=== PATIENT | male | born 1975 | race Caucasian/White ===

== ENCOUNTER 2021-05-16 18:09 | Inpatient (IN) | payer BC ==
[~2021-05-16] VITALS: Ht 170.2 cm; Wt 96.2 kg
[2021-05-16] VITALS (12 sets, daily range): BP systolic 82–122; BP diastolic 40–57
[2021-05-16 21:41] LABS: BE(vivo) 6.1 mmol/L (-2 to +3); HCO3 30.5 mmol/L (22.0-26.0); PCO2 43.6 mmHg (35.0-45.0); PO2 56.2 mmHg (80.0-100.0); pH 7.463 (7.360-7.450); sO2 90.7 % (92.0-98.0)
[2021-05-16 23:11] LABS: HEMOGLOBIN 7.9 gm/dL (14.0-18.0); RDW 20.9 % (10.5-14.5)
[2021-05-16 23:14] LABS: HEMATOCRIT 25.3 % (42.0-52.0); MCH 29.6 pg (26.0-34.0); MCV 95.3 fL (80.0-100.0); RBC 2.66 mil/uL (4.50-6.00)
[2021-05-16 23:25] LABS: CALCIUM 7.4 mg/dL (8.5-10.1); CREATININE 1.1 mg/dL (0.7-1.3); POTASSIUM 5.1 mmol/L (3.5-5.1)
[2021-05-16 23:29] LABS: ALBUMIN 2.7 g/dL (3.4-5.0); DIRECT BILIRUBIN 0.7 mg/dL (<0.1-0.2); TOTAL BILIRUBIN 2.3 mg/dL (0.2-1.0); TOTAL PROTEIN 5.9 g/dL (6.4-8.2)
[2021-05-16 23:34] LABS: INR 1.14; PROTIME 12.4 Seconds (10.5-12.1)
[2021-05-17] VITALS (25 sets, daily range): BP systolic 82–121; BP diastolic 38–59
[2021-05-17 00:47] LABS: WBC 64.9 thou/uL (4.0-11.0)
[2021-05-17 04:03] LABS: BE(vivo) 6.1 mmol/L (-2 to +3); HCO3 33.5 mmol/L (22.0-26.0); PCO2 68.4 mmHg (35.0-45.0); PO2 83.7 mmHg (80.0-100.0); sO2 94.9 % (92.0-98.0)
[2021-05-17 04:04] LABS: pH 7.308 (7.360-7.450)
[2021-05-17 04:47] LABS: HEMATOCRIT 25.1 % (42.0-52.0); HEMOGLOBIN 7.7 gm/dL (14.0-18.0); RBC 2.61 mil/uL (4.50-6.00)
[2021-05-17 04:50] LABS: MCH 29.5 pg (26.0-34.0); MCHC 30.7 g/dL (28.0-37.0); MCV 96.3 fL (80.0-100.0); RDW 21.2 % (10.5-14.5)
[2021-05-17 04:53] LABS: WBC 63.5 thou/uL (4.0-11.0)
[2021-05-17 05:08] LABS: ALBUMIN 2.6 g/dL (3.4-5.0); CALCIUM 7.2 mg/dL (8.5-10.1); CREATININE 1.1 mg/dL (0.7-1.3); TOTAL BILIRUBIN 1.9 mg/dL (0.2-1.0); TOTAL PROTEIN 6.1 g/dL (6.4-8.2)
--- NOTE | 2021-05-17 07:53 | NUR ---
1909- patient here from [place]. Intubated with right IJ TLC in place. Left radial arterial line in place. levophed running at 3 mcgs. Fentanyl at 100 mcgs and propofol at 65 mcgs. Patient placed on full ICU monitoring. Pt placed on vent with appropriate settings. Dr. lea called. Orders received. Added Versed for sedation. 199- Patient still not oxygenating well. Belly breathing, asyncronous from vent. Nimbex added. After this, pts O2 sat increased to upper 90's. Heart rate and rhythm have been stable. Good U/o. AM labs resulted and reviewed. See documentation on interventions for assessment details.
[2021-05-17 09:41] LABS: LIPASE 113 U/L (73-393)
[2021-05-17 11:27] LABS: BE(vivo) 4.1 mmol/L (-2 to +3); HCO3 28.9 mmol/L (22.0-26.0); PCO2 44.4 mmHg (35.0-45.0); PO2 69.6 mmHg (80.0-100.0); pH 7.431 (7.360-7.450); sO2 94.3 % (92.0-98.0)
--- NOTE | 2021-05-17 14:13 | NUR ---
NOTED SUBQ AIR TO NECK AREA. DR. JACOBO AWARE. FOLLOW UP CHEST XRAY. WILL NOTIFY IF SATS DROP FOR POTENTIAL CHEST TUBE PLACEMENT IF WORSENING.
--- NOTE | 2021-05-17 20:19 | NUR ---
PATIENT REMAINS CRITICAL ON THE VENT. DEEP SEDATION WITH PROPOFOL, VERSED, FENTANYL, AND NIMBEX GTTS TO TOLERATE VENT AND MAINTAIN SATS. NOTED SUB Q AIR TO NECK, DR. JACOBO NOTIFIED. FOLLOW UP CHEST XRAY DONE, SEEN BY DR. JACOBO. STATED TO CALL IF PATIENT CAN NOT MAINTAIN SATS. NOTED BLOOD FROM OG TUBE, DR. JACOBO AWARE, CONTINUE TO MONITOR. FEBRILE THIS AFTERNOON, GIVEN PRN TYLENOL. FLAGGED POSTIVE ON SEPSIS SCREEN, SPOKE WITH DR. JACOBO. ORDERS TO MONITOR CVP. CVP LINE SET UP. LEFT RADIAL NILSA REMAINS INTACT. TITRATING LEVOPHED TO MAINTAIN BLOOD PRESSURES. INITIATED TUBE FEEDING PER ORDERS. ACCUCHECKS Q6HR. LEAKING AROUND VEAL, EPISODE OF INCONTININCE. REMOVED AND REPLACED WITH NEW VELA. GOOD URINE OUTPUT AFTER REPLACEMENT. UPDATED FAMILY ON PATIENT STATUS. SET UP FACETIME WITH FAMILY TO SEE PATIENT.
[2021-05-18] VITALS (52 sets, daily range): BP systolic 97–117; BP diastolic 41–68
[2021-05-18 02:05] LABS: GLYCOHEMOGLOBIN (HGB A1C) 10.7 % (4.8-5.6)
[2021-05-18 04:05] LABS: BE(vivo) 3.6 mmol/L (-2 to +3); HCO3 30.4 mmol/L (22.0-26.0); PCO2 59.6 mmHg (35.0-45.0); PO2 86.5 mmHg (80.0-100.0); sO2 95.7 % (92.0-98.0)
[2021-05-18 04:06] LABS: pH 7.325 (7.360-7.450)
[2021-05-18 05:05] LABS: ABSOLUTE NEUTROPHILS 4.5 thou/uL (1.4-8.2); BASOPHILS 0.4 % (0.0-2.0); HEMATOCRIT 23.9 % (42.0-52.0); HEMOGLOBIN 7.2 gm/dL (14.0-18.0); LYMPHOCYTES 82.3 % (24.0-44.0); MCH 29.6 pg (26.0-34.0); MCHC 30.2 g/dL (28.0-37.0); MCV 98.1 fL (80.0-100.0); MONOCYTES 0.9 % (1.0-8.0); PLATELET COUNT 63 thou/uL (150-400); POLYS 16.4 % (36.0-66.0); RBC 2.43 mil/uL (4.50-6.00); RDW 21.4 % (10.5-14.5)
--- NOTE | 2021-05-18 05:07 | HC ---
[facility] [place] [address] CONSULTATION Name: TAB BALDERAS Room #: 237-[facility] M.R.#: [id number] Admission: 05/16/21 Attend Phys: Selam Valencia Discharge: Date of : 75 Report #: [id number] THIS REPORT FOR: cc: TODD - No family physician/PCP TODD - No family physician/PCP Ryan Huerta MD ~ DATE OF SERVICE: 05/17/2021 INFECTIOUS DISEASE CONSULTATION ATTENDING PHYSICIAN: Dr. Valencia. REASON FOR EVALUATION: Severe COVID-19 infection, complicated by pneumonitis with respiratory failure and ARDS, also marked leukocytosis is noted as well. HISTORY OF PRESENT ILLNESS: Chart reviewed and the patient was examined. This is a 46-year-old admitted in direct transfer from [facility], had been hospitalized there on 05/05/2021. At that time, had a roughly 2-day history of progressive dyspnea. 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 Through the course of that hospitalization, continued to worsen, had been confirmed to have COVID-19 infection and was placed on a combination therapy directed against the virus including remdesivir, corticosteroids, also empiric antimicrobials with azithromycin, cefepime and vancomycin. Despite that he did require intubation on day of transfer, 05/16/2021. He is now currently in the ICU here. He is maintained on ventilatory support, FiO2 of 100%. He is sedated. At this point is not requiring additional pressor support. Of note, on transfer, white count was elevated at 63.5 thousand, hemoglobin 7.7, platelet count of 106. Chest x-ray confirms bilateral infiltrates. Initial ABG: pH 7.463, pCO2 of 43.6, pO2 of 56.2, on 100%, PEEP of 14. Blood sugars markedly elevated at 365 as well. Lactic acid was 2.8, repeat was 2.1. He has been given vancomycin and piperacillin in addition to corticosteroids. ALLERGIES: LISTED TO CONTRAST DYE. CURRENT MEDICATIONS: Include vancomycin, dexamethasone, Zosyn, acetylcysteine, insulin drip, famotidine, enoxaparin, propofol, acetaminophen, ondansetron as needed. PAST MEDICAL HISTORY: History of hypertension, hyperlipidemia. SOCIAL HISTORY: Per chart, nonsmoker, no ethanol, no illicit drug use. FAMILY HISTORY: Noncontributory. REVIEW OF SYSTEMS: Unobtainable. [address] [address] CONSULTATION Name: TAB BALDERAS Room #: 237-P [facility] IN [facility]#: [id number] Admission: 05/16/21 Attend Phys: Selam Valencia Discharge: Date of : 75 Report #: [id number] PHYSICAL EXAMINATION: GENERAL: He appears reasonably well nourished. He is sedated, mild to moderate distress. VITAL SIGNS: Afebrile. Pulse in the 90s, blood pressures in the 130 systolic. HEENT: ET, OG tube in place. NECK: Appears to be supple. LUNGS: Scattered coarse breath sounds. HEART: Borderline tachycardic, regular. I do not appreciate a murmur. ABDOMEN: Slightly distended and firm. No peritoneal signs. GENITOURINARY AND RECTAL: Deferred. LABORATORY DATA: Electrolytes: Sodium 141, potassium 5, chloride 103, bicarbonate 33, anion gap of 5, BUN and creatinine 37 and 1.1, glucose of 336. AST of 55, ALT of 40. Albumin 2.6, total protein 6.1, estimated GFR of 72. Lactic acid of 2.1. CBC: White count of 63.5, H and H 7.7 and 25.1, platelets of 106. There is not a differential done. ASSESSMENT AND PLAN: 1. COVID-19 infection complicated by severe pneumonitis with respiratory failure and acute respiratory distress syndrome. 2. Marked leukocytosis. We will evaluate for possible underlying occult process, primary hematological issue versus acute leukemoid reaction. Check differential. 3. Hyperglycemia, whether this is a harbinger to diabetes, has otherwise been undiagnosed or hypertension. Continue a combination of empiric broad spectrum antimicrobial therapy. He had received a direct antiviral therapy as well. 4. Continue corticosteroids, remains critically ill. Continue to support maximally with supplemental oxygen. Monitor expectantly, certainly at risk for additional complications. <ELECTRONICALLY SIGNED> By: Ryan Huerta MD 05/18/21 0507 [id number] [id number] Ryan Huerta MD /nt
[2021-05-18 05:08] LABS: WBC 27.7 thou/uL (4.0-11.0)
[2021-05-18 05:35] LABS: ALBUMIN 2.2 g/dL (3.4-5.0); CREATININE 1.1 mg/dL (0.7-1.3); MAGNESIUM 2.8 mg/dL (1.8-2.4); POTASSIUM 5.3 mmol/L (3.5-5.1); TOTAL BILIRUBIN 1.3 mg/dL (0.2-1.0); TOTAL PROTEIN 5.3 g/dL (6.4-8.2)
--- NOTE | 2021-05-18 06:20 | NUR ---
Pt. remains critical, no vent. setting change, sedation with paralytic cont. Pneumothorax crepitus remains unchanged from start of shift. No communication from fmaily overnight.
--- NOTE | 2021-05-18 10:25 | NUR ---
Patient's sister, Soraya Meng, updated on patient condition and plan of care.
[2021-05-18 14:29] LABS: URINE BILIRUBIN NEGATIVE (Negative); URINE BLOOD 3+ (Negative); URINE CLARITY SL CLOUDY; URINE COLOR YELLOW; URINE GLUCOSE-RANDOM* 3+ (Negative); URINE KETONES TRACE (Negative); URINE LEUKOCYTES NEGATIVE (Negative); URINE NITRITE NEGATIVE (Negative); URINE PROTEIN (DIPSTICK) TRACE (Negative); URINE SPECIFIC GRAVITY 1.015 (1.005-1.035); URINE UROBILINOGEN 0.2 E.U./dl (0.2-1.0)
[2021-05-18 14:50] LABS: CASTS None Seen /LPF (None Seen); SQUAMOUS 0-3 Few /LPF (0-3); URINE RBC >20 Many /HPF (NONE SEEN); URINE WBC 1-5 Rare /HPF (NONE SEEN)
[2021-05-18 14:51] LABS: BACTERIA None Seen /HPF (None Seen); CRYSTALS None Seen /LPF (None Seen)
--- NOTE | 2021-05-18 16:20 | NUR ---
Facetime set up with family at this time.
--- NOTE | 2021-05-18 17:12 | NUR ---
ASSUMED CARE OF PATIENT AT 0600. VENTILATOR SETTINGS WERE A/C 22/550/.100 +14. PATIENT STILL HAS SUB Q ON THE RIGHT SIDE GREATER THAN THE LEFT. WE DECREASED THE FIO2 TO 90% AND HAS BEEN TOLERATED BY THE PATIENT. WILL CONTINUE TO MONITOR THE PATIENT FOR CHANGES THAT NEED TO BE MADE.
[2021-05-19] VITALS (37 sets, daily range): BP systolic 101–131; BP diastolic 39–77
[2021-05-19 04:13] LABS: BE(vivo) 2.8 mmol/L (-2 to +3); HCO3 29.6 mmol/L (22.0-26.0); PCO2 61.6 mmHg (35.0-45.0); PO2 76.5 mmHg (80.0-100.0); sO2 93.6 % (92.0-98.0)
[2021-05-19 04:48] LABS: PLATELET COUNT 61 thou/uL (150-400)
[2021-05-19 04:52] LABS: MCH 30.8 pg (26.0-34.0); MCHC 30.8 g/dL (28.0-37.0); MCV 100.1 fL (80.0-100.0); RBC 1.99 mil/uL (4.50-6.00); RDW 21.4 % (10.5-14.5); WBC 17.7 thou/uL (4.0-11.0)
[2021-05-19 04:54] LABS: HEMATOCRIT 19.9 % (42.0-52.0); HEMOGLOBIN 6.1 gm/dL (14.0-18.0)
[2021-05-19 05:14] LABS: ALBUMIN 1.8 g/dL (3.4-5.0); CALCIUM 7.5 mg/dL (8.5-10.1); MAGNESIUM 3.3 mg/dL (1.8-2.4); POTASSIUM 4.9 mmol/L (3.5-5.1); TOTAL BILIRUBIN 0.7 mg/dL (0.2-1.0); TOTAL PROTEIN 5.5 g/dL (6.4-8.2)
--- NOTE | 2021-05-19 06:04 | NUR ---
REMAINS ON MECH. VENT. SETTINGS AC, TV 550, PEEP 14, RATE INCRESED TO 24 POST ABG. SEDATION CONTINUES FOR VENT MANAGEMENT, SEE MAR. HGB 6.1. ORDER FOR TYPE AND CROSS, TRANSFUSE ONE UNIT RBC. BLOOD BANK BAND PLACED, IN PROCESS OF TYPE AND CROSS. NEED TO CONTACT PAM'S SISTER THIS AM, TO GET CONSENT FOR BLOOD. REMIANS ON LEVOPHED FOR BLOOD PRESSURE SUPPORT.
--- NOTE | 2021-05-19 12:20 | NUR ---
Discussed during los and unite rounds with pulmonary Md, new orders try transfer for ecmo. Pulmonary to reached out to [facility] sister his contacts. CM spoke with dilip at transfer center. to call dr alcides cm faxed over referral to [phone], and requested images be cloud over to .
--- NOTE | 2021-05-19 12:23 | NUR ---
CM Director notified by CM that a Physician Order (which is required for CM to pursue) has been put in to search for ECMO on this patient. Also noting that it is the MD that can determine viability of out of State transfer. CM will note daily interactions with Tertiary hospitals that can provide such services and outcomes noting these facilities will on accept on patients 7-10 days on ventilator support. Noting each of these hospitals are fielding numerous requests for ECMO beds within the region. Once passed the 7-10-day deadline; CM can no longer pursue as these are the Tertiary Hospital guidelines which CM cannot override.
[2021-05-19 13:55] LABS: ABSOLUTE NEUTROPHILS 3.7 thou/uL (1.4-8.2); NUCLEATED RBCS 9 /100WBC
[2021-05-19 13:56] LABS: ANISOCYTOSIS 1+
[2021-05-19 18:04] LABS: HEMATOCRIT 20.6 % (42.0-52.0)
[2021-05-19 18:18] LABS: HEMOGLOBIN 6.3 gm/dL (14.0-18.0)
[2021-05-19 19:07] LABS: ABSOLUTE NEUTROPHILS 4.2 thou/uL (1.4-8.2); BASOPHILS 1.6 % (0.0-2.0); HEMATOCRIT 20.7 % (42.0-52.0); LYMPHOCYTES 70.4 % (24.0-44.0); MCH 29.9 pg (26.0-34.0); MCHC 30.4 g/dL (28.0-37.0); MCV 98.3 fL (80.0-100.0); MONOCYTES 0.4 % (1.0-8.0); PLATELET COUNT 27 thou/uL (150-400); POLYS 27.6 % (36.0-66.0); RDW 21.1 % (10.5-14.5); WBC 15.3 thou/uL (4.0-11.0)
[2021-05-19 19:09] LABS: HEMOGLOBIN 6.3 gm/dL (14.0-18.0)
[2021-05-19 19:14] LABS: CALCIUM 7.5 mg/dL (8.5-10.1); CREATININE 0.9 mg/dL (0.7-1.3); POTASSIUM 5.1 mmol/L (3.5-5.1)
--- NOTE | 2021-05-19 21:09 | NUR ---
Spoke with patient's sister, Soraya, over the phone. GAve her an update in patient condition. Let her know I would call her if anything got worse overnight. She said she would call again in the am.
--- NOTE | 2021-05-19 21:12 | NUR ---
1 unit packed cells given without incidence.
--- NOTE | 2021-05-19 22:14 | NUR ---
2200- Page Dr. Scott. Notified him of low platelet count. Gave update in patiet condition. Orders received for DIC profile and consult hemotology. Called [facility]. She is still not ready to do the CT as she has many ER patients. Will call when ready. Called consult to Dr. Chand.
[2021-05-19 22:42] LABS: APTT 28.2 Seconds (24.5-32.8); PROTIME 10.9 Seconds (10.5-12.1)
--- NOTE | 2021-05-19 23:24 | NUR ---
Called [facility] again, asking when they could do the CT abdomen and the tech said she still had 4 stat scans from the ER.
[2021-05-20] VITALS (39 sets, daily range): BP systolic 92–154; BP diastolic 49–93
[2021-05-20 04:49] LABS: BE(vivo) 4.3 mmol/L (-2 to +3); HCO3 31.5 mmol/L (22.0-26.0); PCO2 63.1 mmHg (35.0-45.0); PO2 102.9 mmHg (80.0-100.0); sO2 97.1 % (92.0-98.0)
--- NOTE | 2021-05-20 04:56 | NUR ---
Around 9090-0569 patient blood pressure became elevated in the 190's to 200's. Patient seemed to be 'waking up', moving head around, some movement of extremities, PIP > 40. Propofol already at 50mcgs, versed at 8 mg/hr, and fentanyl at 100 mcgs/hour. Restarted Nimbex to help with blood pressure, vent compliance, and comfort. 0300- went to [facility] with 2nd RN and RT. No incident. Upon return, blood pressure per arterial line in the 200's.Accurate wave form. Pt biting on Ett, moving head back and forth. Nimbex and propofol increased. Called Vania Murphy NP, orders received for metoprolol 5mg IV x1. 0345- Metoprolol given. 0400- SBP now in the 160s PIP still 43-45.
[2021-05-20 05:02] LABS: pH 7.316 (7.360-7.450)
[2021-05-20 05:07] LABS: HEMATOCRIT 25.7 % (42.0-52.0); HEMOGLOBIN 7.9 gm/dL (14.0-18.0); MCH 29.5 pg (26.0-34.0); MCHC 30.8 g/dL (28.0-37.0); MCV 95.9 fL (80.0-100.0); RBC 2.68 mil/uL (4.50-6.00); RDW 19.1 % (10.5-14.5); WBC 19.7 thou/uL (4.0-11.0)
[2021-05-20 05:32] LABS: CALCIUM 7.5 mg/dL (8.5-10.1); CREATININE 0.7 mg/dL (0.7-1.3); POTASSIUM 4.6 mmol/L (3.5-5.1)
--- NOTE | 2021-05-20 06:22 | NUR ---
Patient still asyncronous with vent. Oxygenating well at 96% on FIO2 of 80. HR low 100's. SBP per kecia, 170s. 135 per cuff. Tube feeds restarted after CT abd done. Patient is not progressing towards goals. See documentation on interventions for assessment details.
--- NOTE | 2021-05-20 09:35 | NUR ---
Mendez spoke with dilip at transfer team, they have to check on beds to see if have any beds today, per dilip the physician said they are closed to ecmo transfers for the unseeable future.
[2021-05-21] VITALS (24 sets, daily range): BP systolic 104–161; BP diastolic 56–84
[2021-05-21 04:15] LABS: HEMATOCRIT 32.5 % (42.0-52.0); HEMOGLOBIN 9.5 gm/dL (14.0-18.0); MCH 29.6 pg (26.0-34.0); MCHC 29.2 g/dL (28.0-37.0); RBC 3.2 mil/uL (4.50-6.00); RDW 20.2 % (10.5-14.5)
[2021-05-21 04:18] LABS: MCV 101.4 fL (80.0-100.0)
[2021-05-21 04:20] LABS: CALCIUM 7.6 mg/dL (8.5-10.1); CREATININE 0.7 mg/dL (0.7-1.3); WBC 73.1 thou/uL (4.0-11.0)
[2021-05-21 04:21] LABS: POTASSIUM 5.4 mmol/L (3.5-5.1)
--- NOTE | 2021-05-21 08:40 | HC ---
[facility] [place] [address] CONSULTATION Name: TAB BALDERAS Xavi Room #: 237-P ADM IN M.R.#: [id number] Admission: 05/16/21 Attend Phys: Rashad Spaulding MD Discharge: Date of : 75 Report #: [id number] THIS REPORT FOR: cc: FAM - No family physician/PCP FAM - No family physician/PCP Pedro Cook MD ~ cc: Rashad Spaulding MD DATE OF SERVICE: 05/20/2021 REASON FOR CONSULTATION: Disseminated intravascular coagulation. 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 At that time, his hemoglobin was about 12.7 and his platelet count was 65,000. He was seen by one of my partners there regarding the lymphocytosis. Flow cytometry has returned showing a B-cell monoclonal population with a differential diagnosis including follicular lymphoma, CD10 positive marginal zone lymphoma, Burkitt's lymphoma, and another mature B-cell neoplasm with aberrant CD10 expression. The patient was transferred to the [facility] ICU for a higher level of care. We are consulted, there is a question of DIC. The patient's recent platelet count was down to 27,000 two days ago. Transfuse up to 53, today 46. Hemoglobin had been down to 6.3, today after transfusion 7.9. Note that his white count is currently above 19,000 when he was admitted at [place] is around 12,000 and went as high as around 40,000 or 60,000 has now been declining. Recent INR was about 1 with an APTT of 28.2, fibrinogen of 423 and a D-dimer of 14, which is elevated. His liver functions have been improving. His total bilirubin has been improving. His IgG level at [place] was 995. Past history is as best we know fairly unremarkable, though there is not much history with regard to that. PAST MEDICAL HISTORY: May be noted we think for hypertension, hyperlipidemia, and elevated blood sugar, though he denied diabetes. SOCIAL HISTORY: Never smoker. No alcohol. FAMILY HISTORY: Not obtainable. CURRENT MEDICATIONS: Include MiraLax daily, methylprednisolone 40 mg q.8h., docusate 100 b.i.d., insulin drip, vitamin C 1500 mg q.6, zinc sulfate 220 mg daily, cholecalciferol 2000 units daily, thiamine 200 mg daily IV, famotidine 20 b.i.d., insulin varying doses, meropenem 1 gram q.12h, vancomycin 1250 mg q.12h, ipratropium and albuterol respiratory therapy, acetylcysteine 600 mg respiratory therapy t.i.d., paralyzing agents, [place] [address] CONSULTATION Name: SHERRIEROULATAB J Room #: 237-P ADM IN M.R.#: [id number] Admission: 05/16/21 Attend Phys: Rashad Spaulding MD Discharge: Date of : 75 Report #: [id number] PHYSICAL EXAM: VITAL SIGNS: Height is 5 feet 7, 170.2 cm, weight is 187 pounds and 6.3 ounces or 85 kilograms. Recent blood pressure is 147/81, O2 sat 96%, pulse 101, current temperature 99.3, but note that last evening it was up to 100.8 at 8:00 in the evening. GENERAL: The patient is in ICU bed in respiratory precautions on a ventilator. HEENT: Face appears symmetrical, though there may be some slight mucosal irritation on his lower lip from his breathing tube. He has several central lines. No obvious bleeding at insertion sites. His urine in his bag does not look bloody. It looks yellow. NECK: No enlarged lymph nodes in the supraclavicular, cervical, axillary, or inguinal region. ABDOMEN: Slightly obese. No definite masses palpable. On percussion, he is a little bit gassy. EXTREMITIES: Without clubbing or cyanosis. There is some ____ of the skin in his feet. The rest was covered by his sequential compression devices. LABORATORY DATA: Lab review is notable for the creatinine of 0.7, AST 23, total bilirubin 0.7, down from 2.3. SGPT is 17, albumin 1.8. Lactic acid 2.9, from 2 days ago. LDH from several days ago 1167. As I mentioned, yesterday, INR was 1 with an APTT of 28.2 with a fibrinogen of 423 and a D-dimer elevated at 14, that is our first measure here. White count today 19.7, hemoglobin 7.9. MCV has been in the upper 90s. RDW elevated at 20.9 on admit here, 19.1 currently. Platelets 46 after the transfusion several days ago. Differential showed increased lymphocytes. TSH slightly low at 0.299 several days ago. IMAGING: Notable for CT abdomen and pelvis done last night, showing extensive interstitial opacities in both lung bases, extensive edema. Marked splenomegaly, unchanged or similar to 05/05/2021, measuring approximately 21.5 cm ____ x 10 x 17.3. Spleen is heterogeneous in attenuation, which may represent infarcts. Metastasis cannot be excluded. Liver thought to be normal. No mention of any enlarged or significantly enlarged lymph nodes. ASSESSMENT AND PLAN: 1. Splenomegaly with monoclonal B cell population on flow cytometry strongly suggestive of a lymphoproliferative disorder such as marginal zone lymphoma. Unclear what role this is playing in the patient's current illness as his IgG level is somewhat normal. 2. COVID pneumonia. Continue supportive efforts with antibiotics and anti-infectives and steroids. 3. Anemia. Transfuse to keep hemoglobin above 7. No obvious bleeding or hemolysis. I believe he was Manuel negative also. Total bilirubin is also not consistent with hemolysis. 4. Thrombocytopenia. Keep platelets above 20,000 or 30,000. No obvious [facility] [address] [place] [address] CONSULTATION Name: TAB BALDERAS Room #: 237-P ADM IN M.R.#: [id number] Admission: 05/16/21 Attend Phys: Rashad Spaulding MD Discharge: Date of : 75 Report #: [id number] bleeding. 5. Elevated D-dimer with fibrinogen adequate and normal coags yesterday, does not appear to be acute disseminated intravascular coagulation. We suspicious that some of the elevated D-dimer is probably related to the COVID and his liver. 6. Respiratory failure. Continue ventilatory support per others. 7. History of hypertension. Defer to others. We will follow with you. <ELECTRONICALLY SIGNED> By: Pedro Cook MD 05/21/21 0840 [id number] [id number] Pedro Cook MD /yumi
--- NOTE | 2021-05-21 12:18 | NUR ---
Cm contacted [facility] transfer centers requesting ECMO tx. They are all full and not accepting ICU/ECMO tx at this time.
[2021-05-22] VITALS (50 sets, daily range): BP systolic 112–153; BP diastolic 56–76
[2021-05-22 05:25] LABS: HEMATOCRIT 24.6 % (42.0-52.0); HEMOGLOBIN 7.8 gm/dL (14.0-18.0); MCH 30.9 pg (26.0-34.0)
[2021-05-22 05:29] LABS: MCHC 31.8 g/dL (28.0-37.0); MCV 97.1 fL (80.0-100.0); RBC 2.53 mil/uL (4.50-6.00); RDW 18.9 % (10.5-14.5)
[2021-05-22 05:46] LABS: CREATININE 0.7 mg/dL (0.7-1.3); POTASSIUM 5.1 mmol/L (3.5-5.1)
[2021-05-22 06:19] LABS: WBC 10.7 thou/uL (4.0-11.0)
[2021-05-22 08:56] LABS: WBC 8.7 thou/uL (4.0-11.0)
[2021-05-22 08:58] LABS: HEMATOCRIT 23.6 % (42.0-52.0); HEMOGLOBIN 7.4 gm/dL (14.0-18.0); MCH 30.4 pg (26.0-34.0); MCHC 31.3 g/dL (28.0-37.0); MCV 96.9 fL (80.0-100.0); RBC 2.44 mil/uL (4.50-6.00); RDW 19.1 % (10.5-14.5)
--- NOTE | 2021-05-22 14:57 | NUR ---
Chart review. Discussed during los with hospitalist and unit rounds with pulmonary md. vent, nutritional support. Still trying to check on ecmo bed around the area: [facility], limit is 3 and have no open beds. [facility] no beds, and [facility] will not have any for the [facility] Covid isolation. On IV gtts. Unit of platelets today. Dr Scott going to try and reach sisters again. Will cont. following as needed. No anticipated dc over the weekend.
--- NOTE | 2021-05-22 18:34 | NUR ---
PATIENT NOT PROGRESSING. DR SKAGGS SPOKE WITH FAMILY MEMBER MILADY BALDERAS ABOUT PATIENT CONDITION AND OVERALL PROGNOSIS. OXYGENATION WORSENS. PER DR SKAGGS OK FOR SATS TO BE 87% AND GREATER. 1 UNIT OF PLATLETS INFUSED TODAY. INSULIN GTT CONTINUES. PROPOFOL, FENTANYL, VERSED FOR SEDATION. ORDERS TO D/C ARTERIAL LINE WHEN PLATLET INFUSION COMPLETE. FAMILY MEMEBERS EXPRESSED WANTING TO COME SEE PATIENT. REQUEST APPROVED VIA REGISTRATION MANAGER NITO. NOTIFIED SUPERVISOR GLYCERIN. FAMILY MEMBER MILADY LEWIS (MOTHER) AND VON VIDALES (SISTER) ARE PLANNING TO FLY IN TO SEE PATIENT TOMORROW FROM [place]. EXPECTED ARRIVAL BETWEEN 1400 AND 1600.
[2021-05-23] VITALS (40 sets, daily range): BP systolic 112–206; BP diastolic 63–96
--- NOTE | 2021-05-23 02:12 | NUR ---
This RN spoke with RT Pako and Dr. Scott regarding patients low oxygen saturation. Patient currently on APRV mode, sats improving. Will watch for impending ABG and chest xray. Patient satting in the mid 80's. Will continue to monitor.
--- NOTE | 2021-05-23 03:19 | NUR ---
This RN referred patient to [facility] at 0320 for a GCS of 3. Referral number is [id number].
[2021-05-23 05:20] LABS: WBC 11.9 thou/uL (4.0-11.0)
[2021-05-23 05:21] LABS: BE(vivo) 14.5 mmol/L (-2 to +3); PO2 67.9 mmHg (80.0-100.0); sO2 87.1 % (92.0-98.0)
[2021-05-23 05:24] LABS: PCO2 119.6 mmHg (35.0-45.0); pH 7.203 (7.360-7.450)
[2021-05-23 05:24] LABS: HEMATOCRIT 24.9 % (42.0-52.0); MCH 31.1 pg (26.0-34.0); MCHC 32.2 g/dL (28.0-37.0); MCV 96.7 fL (80.0-100.0); RBC 2.58 mil/uL (4.50-6.00); RDW 19.1 % (10.5-14.5)
[2021-05-23 05:29] LABS: CALCIUM 8.4 mg/dL (8.5-10.1); CREATININE 0.5 mg/dL (0.7-1.3); POTASSIUM 4.9 mmol/L (3.5-5.1)
--- NOTE | 2021-05-23 09:35 | NUR ---
PATIENT'S SISTER, MILADY, CALLED FROM [phone] AND SHE WAS UPDATED AND EDUCATED ON THE PATIENT'S CONDITION AND PLAN OF CARE.
--- NOTE | 2021-05-23 11:00 | NUR ---
Chart review discussed during los with hospitalist and unit rounds. No anticipated dc over the weekend. Vent day # 7, nutritional support. Isolation for covid. Sister and mom on their way for out of state, going to be able to make window visits at doors. [facility] accept any ecmo transfers, at capacity. Will cont. following as needed for dc needs.
[2021-05-23 12:44] LABS: DIRECT BILIRUBIN 0.5 mg/dL (<0.1-0.2)
--- NOTE | 2021-05-23 20:58 | NUR ---
This RN spoke to kris Araya, at 2030. Discussed plan of care and updated on patient. RN set up Facetime with family, facetgovind for 30 minutes.
[2021-05-24] VITALS (22 sets, daily range): BP systolic 129–165; BP diastolic 68–92
[2021-05-24 04:37] LABS: RBC 2.3 mil/uL (4.50-6.00)
[2021-05-24 04:38] LABS: HEMATOCRIT 22.2 % (42.0-52.0); HEMOGLOBIN 7.1 gm/dL (14.0-18.0); MCH 30.8 pg (26.0-34.0); MCHC 31.8 g/dL (28.0-37.0); MCV 96.7 fL (80.0-100.0); RDW 18.5 % (10.5-14.5); WBC 9.9 thou/uL (4.0-11.0)
--- NOTE | 2021-05-24 04:40 | NUR ---
This RN talked to [facility] this morning at 0440 to update on patient status.
[2021-05-24 04:56] LABS: BE(vivo) 16.2 mmol/L (-2 to +3); PCO2 60.2 mmHg (35.0-45.0); PO2 53.2 mmHg (80.0-100.0); pH 7.461 (7.360-7.450); sO2 88.2 % (92.0-98.0)
[2021-05-24 05:02] LABS: CALCIUM 8.5 mg/dL (8.5-10.1); CREATININE 0.7 mg/dL (0.7-1.3); POTASSIUM 5.3 mmol/L (3.5-5.1)
--- NOTE | 2021-05-24 13:21 | NUR ---
1315HRS - PT'S MOTHER AND SISTER ARRIVED. WITH PERMISSION FROM NATUROPATHIC PHYSICIAN OF THE DAY, FAMILY MEMBERS ARE ALLOW TO VIEW FROM OUTSIDE OF PT'S DOOR. MOTHER AND SISTER INFORMED AND UPDATED ON PT'S STATUS.
[2021-05-25] VITALS (20 sets, daily range): BP systolic 127–159; BP diastolic 67–88
[2021-05-25 05:52] LABS: HEMOGLOBIN 6.8 gm/dL (14.0-18.0); RBC 2.22 mil/uL (4.50-6.00)
[2021-05-25 05:55] LABS: HEMATOCRIT 21.2 % (42.0-52.0); MCH 30.7 pg (26.0-34.0); MCHC 32.1 g/dL (28.0-37.0); MCV 95.7 fL (80.0-100.0); RDW 18.7 % (10.5-14.5); WBC 10.3 thou/uL (4.0-11.0)
[2021-05-25 06:07] LABS: CALCIUM 8.1 mg/dL (8.5-10.1); CREATININE 0.6 mg/dL (0.7-1.3); POTASSIUM 4.6 mmol/L (3.5-5.1)
--- NOTE | 2021-05-25 06:50 | NUR ---
ASSUMED CARE AT 1900. SPOKE TO FAMILY AROUND 1999 TO SET UP FACE TIME CALL; FAMILY CALLED ON IPAD AT 2300. 0330-[facility] CALLED, GAVE UPDATE ON PT'S CONDITION. 626-SPOKE TO DR. SKAGGS REGARDING HGB OF 6.8; OBTAINED ORDER TO TYPE/SCREEN AND TRANSFUSE ONE UNIT. PT'S O2 SAT HAS BEEN IN 80'S ALL NIGHT, LOW OF 84% AND HIGH OF 88%. NO PROGRESSION TOWARDS GOALS.
--- NOTE | 2021-05-25 21:45 | NUR ---
ASSUMED CARE AT 1900. RT DECREASED PEEP TO 12, WHICH HAS LOWERED THE PEAK PRESSURE; PT'S SATs REMAIN AROUND 90%. WILL CONTINUE TO MONITOR.
[2021-05-26] VITALS (16 sets, daily range): BP systolic 109–153; BP diastolic 73–88
[2021-05-26 04:10] LABS: BE(vivo) 17.5 mmol/L (-2 to +3); HCO3 44.3 mmol/L (22.0-26.0); PCO2 67.8 mmHg (35.0-45.0); PO2 53.4 mmHg (80.0-100.0); pH 7.433 (7.360-7.450); sO2 87.2 % (92.0-98.0)
[2021-05-26 05:44] LABS: HEMOGLOBIN 8.5 gm/dL (14.0-18.0); MCH 31.9 pg (26.0-34.0); MCV 93.8 fL (80.0-100.0); RBC 2.66 mil/uL (4.50-6.00); RDW 18.4 % (10.5-14.5); WBC 12.8 thou/uL (4.0-11.0)
[2021-05-26 06:12] LABS: ALBUMIN 1.7 g/dL (3.4-5.0); ANION GAP < 0 mmol/L (7-16); BUN 20 mg/dL (7-18); CALCIUM 8.3 mg/dL (8.5-10.1); CHLORIDE 100 mmol/L (98-107); CO2 43 mmol/L (21-32); CREATININE 0.5 mg/dL (0.7-1.3); GLUCOSE 118 mg/dL (74-106); POTASSIUM 4.8 mmol/L (3.5-5.1); SGOT 97 U/L (15-37); SGPT 56 U/L (30-65); SODIUM 140 mmol/L (136-145); TOTAL BILIRUBIN 1.8 mg/dL (0.2-1.0); TOTAL PROTEIN 5.8 g/dL (6.4-8.2)
--- NOTE | 2021-05-26 15:09 | NUR ---
1509HRS - TF RESIDUAL 250ML
--- NOTE | 2021-05-26 22:29 | NUR ---
ASSUMED CARE OF PATIENT AT 1900. PATIENT'S SISTER CALLED THIS RN FOR UPDATE. ALL QUESTIONS ANSWERED. SISTER ALSO REQUESTED TO FACETIME WITH PATIENT. FACETIME SET UP AT 22:34 AND LEFT IN THE ROOM TO GIVE THEM PRIVACY. ENCOURAGED HER TO CALL BACK IF SHE HAD ANY QUESTIONS.
[2021-05-27] VITALS (24 sets, daily range): BP systolic 126–237; BP diastolic 71–134
[2021-05-27 03:16] LABS: HEMATOCRIT 23.9 % (42.0-52.0); RBC 2.52 mil/uL (4.50-6.00)
[2021-05-27 03:18] LABS: HEMOGLOBIN 7.8 gm/dL (14.0-18.0); MCH 31.2 pg (26.0-34.0); MCHC 32.8 g/dL (28.0-37.0); MCV 95.1 fL (80.0-100.0); RDW 18.1 % (10.5-14.5); WBC 13.9 thou/uL (4.0-11.0)
[2021-05-27 03:44] LABS: ANION GAP < 0 mmol/L (7-16); BUN 19 mg/dL (7-18); CALCIUM 8.2 mg/dL (8.5-10.1); CHLORIDE 100 mmol/L (98-107); CO2 42 mmol/L (21-32); CREATININE 0.5 mg/dL (0.7-1.3); GLUCOSE 107 mg/dL (74-106); POTASSIUM 5.1 mmol/L (3.5-5.1); SODIUM 140 mmol/L (136-145)
[2021-05-27 09:28] LABS: BE(vivo) 12.2 mmol/L (-2 to +3); HCO3 40.4 mmol/L (22.0-26.0); PO2 63.3 mmHg (80.0-100.0); pH 7.339 (7.360-7.450); sO2 89.7 % (92.0-98.0)
[2021-05-27 09:29] LABS: PCO2 76.7 mmHg (35.0-45.0)
--- NOTE | 2021-05-27 11:58 | NUR ---
DR. VALERIO ROUNDED AT 0830, DISCUSSED NO PUPIL REACTION AND ABSENT COUGH/GAG. STATED TO TURN OFF SEDATION AND ASSESS FOR ANY NEURO REACTION. SEDATION COMPLETELY OFF. REASSESSMENT, SLUGGISH PUPIL REACTION OF LEFT EYE. NO PUPIL REACTION TO RIGHT. VERY WEAK COUGH WITH DEEP SUCTION. PATIENT BECAME TACHYCARDIC IN THE 130'S AND HYPERTENSIVE. PRN BLOOD PRESSURE MEDICATION ORDERS. PATIENT REMAINED HTN AND USING ACCESSORARY MUSCLES WHILE BREATHING. RESTARTED SEDATION OF COMFORT AND VENT MANAGEMENT.
--- NOTE | 2021-05-27 16:33 | NUR ---
Discussed during los with hospitalist and during unit am rounds. Vent and nutritional support. Chest tube. Family been here from out of town, window visits. Cont. on Isolation Covid +. Will cont. following as needed
--- NOTE | 2021-05-27 21:12 | NUR ---
This RN spoke to Soraya, sister at 2049 regarding patient status and plan of care.
--- NOTE | 2021-05-27 21:13 | NUR ---
This RN talked to [facility] account development representative at 2109 regarding current patient status and medications.
[2021-05-27 23:11] LABS: BE(vivo) 14.4 mmol/L (-2 to +3); HCO3 42.8 mmol/L (22.0-26.0); PO2 64.5 mmHg (80.0-100.0); sO2 89.3 % (92.0-98.0)
[2021-05-27 23:12] LABS: PCO2 86.2 mmHg (35.0-45.0); pH 7.314 (7.360-7.450)
[2021-05-28] VITALS (14 sets, daily range): BP systolic 118–156; BP diastolic 68–91
[2021-05-28 03:28] LABS: BE(vivo) 18.1 mmol/L (-2 to +3); HCO3 46.7 mmol/L (22.0-26.0); PO2 83.6 mmHg (80.0-100.0); pH 7.333 (7.360-7.450); sO2 94.8 % (92.0-98.0)
[2021-05-28 05:20] LABS: HEMATOCRIT 23.4 % (42.0-52.0); HEMOGLOBIN 7.5 gm/dL (14.0-18.0); MCH 30.6 pg (26.0-34.0); MCHC 31.9 g/dL (28.0-37.0); PLATELET COUNT 22 thou/uL (150-400); RBC 2.44 mil/uL (4.50-6.00); RDW 18.1 % (10.5-14.5)
[2021-05-28 05:44] LABS: ALBUMIN 1.7 g/dL (3.4-5.0); ANION GAP < 0 mmol/L (7-16); BUN 23 mg/dL (7-18); CALCIUM 8.1 mg/dL (8.5-10.1); CHLORIDE 98 mmol/L (98-107); CO2 44 mmol/L (21-32); CREATININE 0.6 mg/dL (0.7-1.3); GLUCOSE 323 mg/dL (74-106); POTASSIUM 5.9 mmol/L (3.5-5.1); SGOT 59 U/L (15-37); SGPT 69 U/L (30-65); SODIUM 139 mmol/L (136-145); TOTAL BILIRUBIN 1.6 mg/dL (0.2-1.0); TOTAL PROTEIN 5.9 g/dL (6.4-8.2)
[2021-05-28 09:26] LABS: ATYPICAL LYMPHS 2 %
[2021-05-28 09:27] LABS: ANISOCYTOSIS 1+; PLATELET ESTIMATE DECREASED
[2021-05-28 09:28] LABS: ABSOLUTE NEUTROPHILS 2.2 thou/uL (1.4-8.2); CORRECTED WBC 12.2 thou/uL (4.0-11.0); NUCLEATED RBCS 15 /100WBC
--- NOTE | 2021-05-28 09:44 | NUR ---
Discussed during am unit rounds. Out of covid isolation. Vent, nutritional support. bronch today. Will cont following as needed for dc needs.
--- NOTE | 2021-05-28 11:18 | NUR ---
THIS RN SPOKE WITH PT SISTER MILADY. GAVE UPDATE ON DOING BRONCOSCOPY AND INFISING 1 UNIT PLATELETS. PT SATTING AT 94% ON PRESSURE CONTROL. BP ELEVATED, GAVE METOPROLOL. WILL CONTINUE TO MONITOR.
--- NOTE | 2021-05-28 11:52 | NUR ---
1010HRS - PT PRONED
[2021-05-29] VITALS (26 sets, daily range): BP systolic 112–164; BP diastolic 55–84
--- NOTE | 2021-05-29 06:00 | NUR ---
REMAINS INTUBATED AND SEDATED WITH PROP VERSED AND FENTANYL GTT FIO2 100 % SUB Q AIR NOW IN UPPER CHEST. 15 CC CHEST TUBE DRG AND 1600 CC UO PTS FAMILY FACE TIMED FOR APPROX 1.5 HRS LAST NIGHT. NOT PROGRESSING TOWARD GOALS.
[2021-05-29 06:46] LABS: HEMOGLOBIN 6.5 gm/dL (14.0-18.0); RDW 17.4 % (10.5-14.5); WBC 13.1 thou/uL (4.0-11.0)
[2021-05-29 06:48] LABS: HEMATOCRIT 20.6 % (42.0-52.0); MCH 30.1 pg (26.0-34.0); MCHC 31.5 g/dL (28.0-37.0); MCV 95.7 fL (80.0-100.0); RBC 2.16 mil/uL (4.50-6.00)
[2021-05-29 07:00] LABS: BUN 19 mg/dL (7-18); CALCIUM 8.2 mg/dL (8.5-10.1); CHLORIDE 98 mmol/L (98-107); CREATININE 0.5 mg/dL (0.7-1.3); GLUCOSE 230 mg/dL (74-106); POTASSIUM 4.8 mmol/L (3.5-5.1); SODIUM 142 mmol/L (136-145)
[2021-05-29 07:01] LABS: CO2 > 45 mmol/L (21-32)
--- NOTE | 2021-05-29 13:35 | NUR ---
no progress today. remains sedated on vent, slight gag/cough with deep suctioning, pupils equal, ST, cyndi hands 3-4+ edema despite elevation on pillows, tolerating tube feeding, [place] with adequate urine output. no calls from family members at this time.
--- NOTE | 2021-05-29 14:51 | NUR ---
Soraya, sister called to state that pt's mother and family are flying in from [place] tomorrow am. they plan on arrival about 1400 at hospital. continuing full code status at this time, desire is to see him tomorrow. prbcs infusing at this time.
--- NOTE | 2021-05-29 15:45 | NUR ---
Discussed during am unit rounds and los with hospitalist. Cm passed on sister's contact information to spiritual care. Mom and sister have already went back home, out of state. Vent, Nutritional support. chest tube. Out isolation for covid.
--- NOTE | 2021-05-29 18:00 | NUR ---
prbc's completed, well tolerated. minimal improvement in vital signs related to blood transfusion.
[2021-05-30] VITALS (25 sets, daily range): BP systolic 106–177; BP diastolic 57–89
[2021-05-30 05:04] LABS: HEMATOCRIT 22.7 % (42.0-52.0); HEMOGLOBIN 7.7 gm/dL (14.0-18.0); RBC 2.46 mil/uL (4.50-6.00)
[2021-05-30 05:08] LABS: MCH 31.3 pg (26.0-34.0); MCV 92.2 fL (80.0-100.0); RDW 16.5 % (10.5-14.5); WBC 10.1 thou/uL (4.0-11.0)
[2021-05-30 05:20] LABS: BE(vivo) 23.3 mmol/L (-2 to +3); HCO3 48.6 mmol/L (22.0-26.0); PCO2 61.6 mmHg (35.0-45.0); PO2 62.3 mmHg (80.0-100.0); pH 7.515 (7.360-7.450); sO2 93.1 % (92.0-98.0)
[2021-05-30 05:27] LABS: PLATELET COUNT 11 thou/uL (150-400)
[2021-05-30 05:51] LABS: ALBUMIN 1.7 g/dL (3.4-5.0); BUN 17 mg/dL (7-18); CALCIUM 8.1 mg/dL (8.5-10.1); CHLORIDE 100 mmol/L (98-107); CREATININE 0.4 mg/dL (0.7-1.3); GLUCOSE 229 mg/dL (74-106); POTASSIUM 4.7 mmol/L (3.5-5.1); SGOT 47 U/L (15-37); SGPT 35 U/L (30-65); SODIUM 141 mmol/L (136-145); TOTAL PROTEIN 5.2 g/dL (6.4-8.2)
[2021-05-30 06:04] LABS: CO2 > 45 mmol/L (21-32)
--- NOTE | 2021-05-30 06:29 | NUR ---
Patient stable through the night. Continues to be sedated on vent. Tolerated turning and bath this shift. Patient had large BM. Heart rate and rhythm stable low 100's. Blood pressure stable 110-130s. No fever. Adequate oxygenation on current vent settings. Decreased Fio2 to 80%. Large U/O. Am labs noted. Patient is slowly progressing towards goals. No family called this shift. See documentation on interventions for assessment details.
[2021-05-30 07:04] LABS: ABSOLUTE NEUTROPHILS 2.2 thou/uL (1.4-8.2); CORRECTED WBC 6.6 thou/uL (4.0-11.0); METAMYELOCYTES 1 %; NUCLEATED RBCS 52 /100WBC
[2021-05-30 07:05] LABS: ANISOCYTOSIS 1+; LARGE PLATELETS FEW; PLATELET ESTIMATE MARKEDLY DECREASED; POIKILOCYTOSIS 1+
--- NOTE | 2021-05-30 15:14 | NUR ---
Per attending in AM review of case: Pulmonology discussion with family on goals of care and recommended DNR continues as progression of illness and patient decline, noting all therapies and treatments have been given and continues to decline. Patient still on vent at FiO2 80% and 14 of PEEP. CM will follow per MD direction as needed as care is more clearly delineated for needs from CM as plan of care per MD continues.
[2021-05-31] VITALS (24 sets, daily range): BP systolic 110–163; BP diastolic 63–88
[2021-05-31 06:10] LABS: MCV 93.5 fL (80.0-100.0); WBC 12.8 thou/uL (4.0-11.0)
[2021-05-31 06:15] LABS: HEMATOCRIT 23.5 % (42.0-52.0); HEMOGLOBIN 7.8 gm/dL (14.0-18.0); MCHC 33.2 g/dL (28.0-37.0); RBC 2.51 mil/uL (4.50-6.00); RDW 16.7 % (10.5-14.5)
[2021-05-31 06:25] LABS: PLATELET COUNT 45 thou/uL (150-400)
--- NOTE | 2021-05-31 06:32 | NUR ---
Patient stable this shift. Able to titrate down dio2 to 70% while keeping o2 sats mid 90s'. Tolerating his bath and turning. Patient had large BM. Spoke with patient's sister Soraya and she had talked with her other sister and thier mother, the patient's mother, and they dicided to make the patient a DNR. They still want full supportive care at this time. See documenation on interventions for assessment detials. Patient is slowly progressing towards goals.
[2021-05-31 06:42] LABS: ALBUMIN 1.9 g/dL (3.4-5.0); ANION GAP < 0 mmol/L (7-16); BUN 16 mg/dL (7-18); CALCIUM 8.3 mg/dL (8.5-10.1); CHLORIDE 101 mmol/L (98-107); CREATININE 0.4 mg/dL (0.7-1.3); GLUCOSE 225 mg/dL (74-106); POTASSIUM 4.5 mmol/L (3.5-5.1); SGOT 46 U/L (15-37); SGPT 35 U/L (30-65); SODIUM 141 mmol/L (136-145); TOTAL PROTEIN 5.4 g/dL (6.4-8.2)
[2021-05-31 06:49] LABS: CO2 45 mmol/L (21-32)
[2021-05-31 08:44] LABS: ABSOLUTE NEUTROPHILS 1.9 thou/uL (1.4-8.2); CORRECTED WBC 7.2 thou/uL (4.0-11.0); MYELOCYTES 3 %; NUCLEATED RBCS 79 /100WBC
[2021-05-31 08:49] LABS: ANISOCYTOSIS 1+
[2021-05-31 08:50] LABS: ATYPICAL LYMPHS 5 %
[2021-05-31 09:35] LABS: BE(vivo) 19.3 mmol/L (-2 to +3); HCO3 45.2 mmol/L (22.0-26.0); PCO2 61.1 mmHg (35.0-45.0); pH 7.487 (7.360-7.450); sO2 88.5 % (92.0-98.0)
[2021-05-31 09:37] LABS: PO2 52.6 mmHg (80.0-100.0)
[2021-06-01] VITALS (24 sets, daily range): BP systolic 99–172; BP diastolic 55–89
[2021-06-01 04:01] LABS: ABSOLUTE NEUTROPHILS 2.5 thou/uL (1.4-8.2); BASOPHILS 1.3 % (0.0-2.0); EOSINOPHILS 0.2 % (0.0-3.0); HEMATOCRIT 23.6 % (42.0-52.0); HEMOGLOBIN 7.5 gm/dL (14.0-18.0); LYMPHOCYTES 79.8 % (24.0-44.0); MCH 30.1 pg (26.0-34.0); MCHC 31.8 g/dL (28.0-37.0); MCV 94.6 fL (80.0-100.0); MONOCYTES 0.4 % (1.0-8.0); PLATELET COUNT 34 thou/uL (150-400); POLYS 18.3 % (36.0-66.0); RDW 16.8 % (10.5-14.5); WBC 13.8 thou/uL (4.0-11.0)
[2021-06-01 04:16] LABS: ALBUMIN 1.8 g/dL (3.4-5.0); ANION GAP < 0 mmol/L (7-16); BUN 18 mg/dL (7-18); CALCIUM 8.3 mg/dL (8.5-10.1); CHLORIDE 100 mmol/L (98-107); CREATININE 0.5 mg/dL (0.7-1.3); GLUCOSE 182 mg/dL (74-106); POTASSIUM 4.4 mmol/L (3.5-5.1); SGOT 48 U/L (15-37); SGPT 33 U/L (16-63); SODIUM 143 mmol/L (136-145); TOTAL BILIRUBIN 1.1 mg/dL (0.2-1.0); TOTAL PROTEIN 5.3 g/dL (6.4-8.2)
[2021-06-01 04:21] LABS: CO2 44 mmol/L (21-32)
[2021-06-01 04:34] LABS: BE(vivo) 16.6 mmol/L (-2 to +3); HCO3 42.5 mmol/L (22.0-26.0); PCO2 61.3 mmHg (35.0-45.0); PO2 66.5 mmHg (80.0-100.0); pH 7.459 (7.360-7.450); sO2 93.5 % (92.0-98.0)
--- NOTE | 2021-06-01 06:05 | NUR ---
Patient stable this shift. Spoke with patient's sister Soraya over the phone. Gave clinical update. She and her sister and their mother had face time with the patient this evening. See documentation on interventions for assessment detials.
[2021-06-02] VITALS (13 sets, daily range): BP systolic 98–140; BP diastolic 62–78
--- NOTE | 2021-06-02 | NUR ---
PTS SISTER AND MOTHER FACE TIMED FOR APPROX 1 HOUR. GIVEN A COND REPORT
--- NOTE | 2021-06-02 06:00 | NUR ---
REMAINS INTUBATED AND SEDATED. FOLLOWS NO COMMANDS. 2000 CC UO AND 100 CC CHEST TUBE DRG. NOT PROGRESSING TOWARD GOALS. REMAINS A DNR. TO HAVE A FAMILY MEETING TODAY AT APPROX 11 AM WITH DRS TO DISCUSS POSSIBOLE COMFORT CARE MEASURES.
[2021-06-02 06:58] LABS: HEMOGLOBIN 7.3 gm/dL (14.0-18.0); RBC 2.36 mil/uL (4.50-6.00)
[2021-06-02 07:00] LABS: HEMATOCRIT 22.3 % (42.0-52.0); MCH 31.1 pg (26.0-34.0); MCHC 32.8 g/dL (28.0-37.0); MCV 94.8 fL (80.0-100.0); RDW 16.7 % (10.5-14.5)
[2021-06-02 07:05] LABS: ANION GAP < 0 mmol/L (7-16); BUN 18 mg/dL (7-18); CALCIUM 8.5 mg/dL (8.5-10.1); CHLORIDE 101 mmol/L (98-107); CO2 43 mmol/L (21-32); CREATININE 0.5 mg/dL (0.7-1.3); GLUCOSE 224 mg/dL (74-106); POTASSIUM 4.5 mmol/L (3.5-5.1); SODIUM 142 mmol/L (136-145)
--- NOTE | 2021-06-02 11:34 | NUR ---
Discussed during los and unit rounds. Cont. to require vent support;70 % FiO2, Peep 14, Nutrional support. Nonresponsive. DNR . His mom and 2 sisters are [place] to speak with Hospitalist, discuss goals of care and comfort care. Will cont. following as needed for discharge needs.
--- NOTE | 2021-06-02 12:30 | NUR ---
Dr. STANLEY HAS A CONFERENCE WITH THE PT. MOTHER AND FAMILY THIS MORNING. AND, THE FAMILY DECIDED TO PALLIATIVELY EXTUBATE TODAY. THE FAMILY IS AT THE BEDSIDE FOR LAST GOODBYES; THEY WILL LEAD THE WAY ON THE TIMING OF EXTUBATION. THE FAMILY IS EDUCATED ON THE MEANING OF PALLIATIVE EXTUBATION AND WHAT THE STEPS ARE FOR COMFORT CARE.
--- NOTE | 2021-06-02 14:00 | NUR ---
PT IS PALLIATIVELY EXTUBATED AT 1338 WITH RT, OBED RN , SATHISH FABIAN, AND FAMILY AT THE BEDSIDE. PT IS GIVEN 2MG MORPHINE FOR COMFORT. THE PT EXPIRES AT 1358 VERIFIED VIA TWO RNS. THE FAMILY REMAINS AT THE BEDSIDE.
== END 2021-06-02 13:38 | DRG 870 ==
LOC: ICU 18:09
PROVIDERS: Hospitalist; Internal Medicine Hematology & Oncology; Internal Medicine Pulmonary Disease; Nurse Practitioner Family; Pediatrics; Specialist; ADMIT Internal Medicine; ATTEND Internal Medicine
DX: A41.89 Other specified sepsis (principal); U07.1 COVID-19; J80 Acute respiratory distress syndrome; R65.21 Severe sepsis with septic shock; G92 Toxic encephalopathy; J69.0 Pneumonitis due to inhalation of food and vomit; E87.0 Hyperosmolality and hypernatremia; D47.9 Neoplasm of uncertain behavior of lymphoid, hematopoietic and related tissue, unspecified; E46 Unspecified protein-calorie malnutrition; I10 Essential (primary) hypertension; E78.5 Hyperlipidemia, unspecified; D64.9 Anemia, unspecified; D69.6 Thrombocytopenia, unspecified; E11.65 Type 2 diabetes mellitus with hyperglycemia; R74.01 Elevation of levels of liver transaminase levels; G47.33 Obstructive sleep apnea (adult) (pediatric); E66.01 Morbid (severe) obesity due to excess calories; T70.29XA Other effects of high altitude, initial encounter; X58.XXXA Exposure to other specified factors, initial encounter; J98.2 Interstitial emphysema; I95.9 Hypotension, unspecified; Z91.041 Radiographic dye allergy status; Z68.33 Body mass index [BMI] 33.0-33.9, adult; Z66 Do not resuscitate; Z51.5 Encounter for palliative care
CPT/HCPCS: 10078; 50455; 85076